=== PATIENT | female | born 1950 | race African-American/Black ===

== ENCOUNTER → 2021-09-29 | Day surgery (SDC) | payer MEDICARE ==
[2021-09-27 15:04] LABS: BASOPHILS % 0.4 % (0.0-1.0); EOSINOPHILS # (AUTO) 0.1 (0.0-0.4); EOSINOPHILS % 1.6 % (0.0-6.0); HEMATOCRIT 41.1 % (34.2-44.1); HEMOGLOBIN 12.7 g/dL (12.0-16.0); LYMPHOCYTES # (AUTO) 1.6 (1.0-3.2); LYMPHOCYTES % 22.4 % (18.0-39.1); MEAN CORPUSCULAR HEMOGLOBIN 29.2 pg (28-32); MEAN CORPUSCULAR HGB CONC 30.9 g/dL (31-35); MEAN CORPUSCULAR VOLUME 94.5 fL (81-99); MONOCYTES # (AUTO) 0.5 (0.2-0.8); MONOCYTES % 7.2 % (4.4-11.3); NEUTROPHILS # (AUTO) 4.8 (2.1-6.9); NEUTROPHILS % 68.1 % (38.7-80.0); PLATELET COUNT 150 x10e3/uL (140-360); RED BLOOD COUNT 4.35 x10e6/uL (3.6-5.1); RED CELL DISTRIBUTION WIDTH 13.8 % (11.7-14.4)
[2021-09-27 15:17] LABS: ANION GAP 15.7 mmol/L (8-16); CALCIUM 9.4 mg/dL (8.4-10.2); CREATININE, SERUM 0.74 mg/dL (0.57-1.11); POTASSIUM 4.7 mmol/L (3.5-5.1)
[~2021-09-29] MED LIST: BALANCED SALT SOLN (OPTH) 15 ML BTL IO ONE; BUPIVACAINE HC 0.75% PF 10ML VIAL INJ ONE; CYCLOPENTOLATE HCL 2% OPTH SOLN 2 ML BTL OP ONE; EPINEPHRINE HCL 1:1000 1ML 1 MG/ML AMP ONE; GATIFLOXACIN(OPTH) 5 ML LIQD ONE; INSULIN INJ; LIDOCAINE 2% /EPINEPHRINE 20 ML SDV INJ ONE; LIDOCAINE HCL-PF 4% 40 MG/1 ML 5ML AMP ONE; MIDAZOLAM HCL 2 MG/2 ML VIAL ONE; PHENYLEPHRINE HCL 2 ML DROPS ONE; PILOCARPINE HCL(OPTH) 15 ML LIQD ONE; POVIDONE IODINE 0.05% 0.05 % ML PO ONE; POVIDONE IODINE 5% (OPTH) 30 ML BTL ONE; PROPOFOL IV EMULSION 10 MG/ML 20 ML VIAL ONE; TOBRAMYCIN/DEXAMETHASONE(OPTH) 3.5 GM TUBE ONE; XIGDUO XR 10 M1 EACH
[2021-09-29 12:05] VITALS: BP 170/90
== END | disposition home or self-care (01) ==
LOC: OR 08:19
PROVIDERS: ATTEND Ophthalmology
DX: H25.12 Age-related nuclear cataract, left eye (principal); E11.9 Type 2 diabetes mellitus without complications; Z01.810 Encounter for preprocedural cardiovascular examination; Z01.812 Encounter for preprocedural laboratory examination; Z20.822 Contact with and (suspected) exposure to COVID-19; Z79.4 Long term (current) use of insulin
CPT/HCPCS: 36415 ×2; 66984; 80048; 82948; 85025; 93005; J0171; J2001; J2250; J2704; U0002; V2632